=== PATIENT | female | born 1995 | race American Indian/Alaskan Native ===

== ENCOUNTER 2020-08-14 09:54 | Emergency (ER) | payer MEDICAID ==
[2020-08-14 10:55] LABS: Basophils % (Auto) 0.5 % (0.0-1.8); Eosinophils # (Auto) 0.1 K/mm3 (0.0-0.4); Eosinophils % (Auto) 1.9 % (0.0-4.3); Hematocrit 40.8 % (30.3-42.9); Lymphocytes # (Auto) 2.2 K/mm3 (1.2-5.4); Lymphocytes % (Auto) 39.7 % (13.4-35.0); Mean Corpuscular HGB Conc 34 % (30-34); Mean Corpuscular Volume 87 fl (79-97); Monocytes # (Auto) 0.5 K/mm3 (0.0-0.8); Monocytes % (Auto) 8.2 % (0.0-7.3); Platelet Count 206 K/mm3 (140-440); Red Blood Count 4.71 M/mm3 (3.65-5.03); Red Cell Distribution Width 13.3 % (13.2-15.2)
[2020-08-14 11:12] LABS: Bacteria,Urine 1+ /HPF (Negative); Bilirubin,Urine NEG (Negative); Blood,Urine NEG (Negative); Color,Urine Yellow (Yellow); Mucus,Urine 1+ /HPF; Protein,Urine <15 mg/dL mg/dL (Negative); Urobilinogen,Urine < 2.0 mg/dL (<2.0)
[2020-08-14 11:18] LABS: Alanine Aminotransferase 37 units/L (7-56); Albumin 4.4 g/dL (3.9-5); BUN/Creatinine Ratio 14; Blood Urea Nitrogen 13 mg/dL (7-17); Calcium 9.6 mg/dL (8.4-10.2); Hemolysis Index 11
--- NOTE | 2020-08-14 12:01 | Emergency Department Report ---
ED Abdominal Pain HPI - General Chief Complaint: Abdominal Pain Stated Complaint: BACK PAIN/N/MIGRAINE/HBP/DEHYDRATION Time Seen by Provider: 08/14/20 11:42 Source: patient Mode of arrival: Ambulatory Limitations: No Limitations - History of Present Illness Initial Comments: The patient was evaluated in the emergency department for symptoms described in the history of present illness. He/she was evaluated in the context of the global COVID-19 pandemic, which necessitated consideration that the patient might be at risk for infection with the virus that causes COVID-19. Institutional protocols and algorithms that pertain to the evaluation of patie nts at risk for COVID-19 are in a state of rapid change based on information released by regulatory bodies including the CDC and federal and state organizations. These policies and algorithms were followed during the patient's care in the emergency department. Please note that these policies, procedures and recommendations changed on a rapid basis. 25-year-old -[place] female presents to the emergency room stating that she has abdominal pain back pain and weakness times a couple of weeks. Patient states that she had vomited twice yesterday and still have nausea. Patient has not vomited today. Patient denies any dysuria no vaginal discharge or bleeding. She reports her last menstrual period was June 24, 2020 and she just stopped getting her Depo injection back in April 2020. Patient reports that her back pain is intermittent sharp worse with nothing better with pain medication. Patient states that she last took Tylenol couple days ago. Patient reports that her abdominal pain is intermittent and is mostly at night sharp and stabbing. Better with nothing and does admit to constipation. She reports a surgical history of a . MD Complaint: abdominal pain Onset/Timin -: week(s) Location: suprapubic Radiation: none Migration to: no migration Severity scale (0 -10): 0 Quality: cramping Consistency: intermittent Improves With: nothing Worsens With: nothing Associated Symptoms: nausea, vomiting (Yesterday), constipation. denies: diarrhea, fever, dysuria, hematemesis, hematochezia, hematuria - Related Data LMP Date: 06/24/20 (Recently gotten off of Depo) Home Medications Medication Instructions Recorded Confirmed Last Taken NexIUM 1 tab PO HS 02/24/18 02/25/18 1 Day Ago ~02/23/18 1 tab Previous Rx's Medication Instructions Recorded Last Taken Type Ferrous Sulfate [Feosol 325 MG tab] 325 mg PO BID #60 tablet 02/26/18 Unknown Rx Ibuprofen [Motrin 800 MG tab] 800 mg PO Q6H PRN #30 tablet 02/26/18 Unknown Rx oxyCODONE /ACETAMINOPHEN [Percocet 1 - 2 tab PO Q4H PRN #30 tablet 02/26/18 Unknown Rx 5/325 mg] Lidocain2.5%/Prilocai2.5% [Emla] 5 gm TP PRN #1 tube 03/01/18 Unknown Rx Ondansetron [Zofran ODT TAB] 4 mg PO Q8HR PRN #12 tab.rapdis 08/14/20 Unknown Rx Allergies Allergy/AdvReac Type Severity Reaction Status Date / Time Latex, Natural Rubber AdvReac Swelling Verified 02/26/18 07:47 ED Review of Systems ROS: Stated complaint: BACK PAIN/N/MIGRAINE/HBP/DEHYDRATION Other details as noted in HPI Comment: All other systems reviewed and negative ED Past Medical Hx - Past Medical History Previous Medical History?: Yes Hx Hypertension: Yes (PIH) Hx Congestive Heart Failure: No Hx Diabetes: No Hx Deep Vein Thrombosis: No Hx Renal Disease: Yes (pre-ecclampsia) Hx Sickle Cell Disease: No Hx Seizures: No Hx Asthma: No Hx COPD: No Hx HIV: No - Surgical History Past Surgical History?: Yes Additional Surgical History: c section - Social History Smoking Status: Never Smoker Substance Use Type: None - Medications Home Medications: Home Medications Medication Instructions Recorded Confirmed Last Taken Type NexIUM 1 tab PO HS 02/24/18 02/25/18 1 Day Ago History ~02/23/18 1 tab Ferrous Sulfate [Feosol 325 MG tab] 325 mg PO BID #60 tablet 02/26/18 Unknown Rx Ibuprofen [Motrin 800 MG tab] 800 mg PO Q6H PRN #30 tablet 02/26/18 Unknown Rx oxyCODONE /ACETAMINOPHEN [Percocet 1 - 2 tab PO Q4H PRN #30 tablet 02/26/18 Unknown Rx 5/325 mg] Lidocain2.5%/Prilocai2.5% [Emla] 5 gm TP PRN #1 tube 03/01/18 Unknown Rx Ondansetron [Zofran ODT TAB] 4 mg PO Q8HR PRN #12 tab.rapdis 08/14/20 Unknown Rx ED Physical Exam - General Limitations: No Limitations General appearance: alert, in no apparent distress - Head Head exam: Present: atraumatic, normocephalic - Eye Eye exam: Present: normal appearance - ENT ENT exam: Present: mucous membranes moist - Neck Neck exam: Present: normal inspection - Respiratory Respiratory exam: Present: normal lung sounds bilaterally. Absent: respiratory distress - Cardiovascular Cardiovascular Exam: Present: regular rate, normal rhythm. Absent: systolic murmur, diastolic murmur, rubs, gallop - GI/Abdominal GI/Abdominal exam: Present: soft, tenderness (Suprapubic), normal bowel sounds - Extremities Exam Extremities exam: Present: normal inspection - Back Exam Back exam: Present: normal inspection - Neurological Exam Neurological exam: Present: alert, oriented X3, normal gait - Psychiatric Psychiatric exam: Present: normal affect, normal mood - Skin Skin exam: Present: warm, dry, intact, normal color. Absent: rash ED Course Vital Signs 08/14/20 10:14 Temperature 98.5 F Pulse Rate 20 L Respiratory 17 Rate Blood Pressure 127/74 [Left] O2 Sat by Pulse 98 Oximetry ED Medical Decision Making - Lab Data Result diagrams: 08/14/20 10:29 08/14/20 10:29 - Medical Decision Making 25-year-old -[place] female presents to the emergency room stating that she has abdominal pain back pain and weakness times a couple of weeks. Patient states that she had vomited twice yesterday and still have nausea. Patient has not vomited today. Patient denies any dysuria no vaginal discharge or bleeding. She reports her last menstrual period was June 24, 2020 and she just stopped getting her Depo injection back in April 2020. Patient reports that her back pain is intermittent sharp worse with nothing better with pain medication. Patient states that she last took Tylenol couple days ago. Patient reports that her abdominal pain is intermittent and is mostly at night sharp and stabbing. Better with nothing and does admit to constipation. She reports a surgical history of a . Patient is given a Toradol injection and Zofran ODT. All labs unremarkable and nonactionable. Patient has no obvious distress mild suprapubic tenderness do not feel imaging is needed at this time. Critical care attestation.: If time is entered above; I have spent that time in minutes in the direct care of this critically ill patient, excluding procedure time. ED Disposition Clinical Impression: Acute abdominal pain, Acute back pain Disposition: TO HOME OR SELFCARE Is pt being admited?: No Does the pt Need Aspirin: No Condition: Stable Instructions: Abdominal Pain (ED) Additional Instructions: Labs are within normal limits. I recommend taking the Zofran as needed for the nausea Tylenol ibuprofen for pain of your back and to follow-up with your primary care provider. Prescriptions: Ondansetron [Zofran ODT TAB] 4 mg PO Q8HR PRN #12 tab.rapdis PRN Reason: Nausea And Vomiting Referrals: PRIMARY CARE, [Primary Care Provider] - 3-5 Days [facility] [Outside] - 3-5 Days
[2020-08-14] MEDS ORDERED: ONDANSETRON 4 MG ODT TAB PO ONE (12:54)
[2020-08-14] MEDS ORDERED: KETOROLAC 30 MG/1 ML INJ IM ONE (12:54)
--- NOTE | 2020-08-14 16:17 | Ultrasound Report ---
ULTRASOUND PELVIS INDICATION: pelvic pain. TECHNIQUE: Transabdominal and Transvaginal. Duplex Color Doppler used: Yes. COMPARISON: None available FINDINGS: Uterus: Present. Size: 8.3 x 3.9 x 3.3 cm. Endometrial complex: Normal measuring 0.6 cm. Mass lesions: There is an indeterminate hypoechoic solid lesion along the lower uterine segment measu ring 8 x 4 mm. Additional findings: None. Right Ovary: Size: 4.4 x 3.9 x 4.5 cm Blood flow: Normal. Cyst or mass: A simple right ovarian cyst measures 3.8 x 2.9 x 3.6 cm. No solid lesions. Left Ovary: Size: 1.6 x 1.4 x 0.9 cm Blood flow: Normal. Cyst or mass: None. Urinary Bladder: Normal. Free Fluid: None. Additional Findings: None. IMPRESSION: 1. Simple right ovarian cyst as above. No follow-up imaging is indicated at this time. 2. Indeterminate subcentimeter solid lower uterine segment lesion could represent a fibroid. Signer Name: Reymundo Patrick MD Signed: 08/14/2020 4:13 PM Workstation Name: [id number]
[2020-08-14 16:34] VITALS: BP 111/67
--- NOTE | 2020-08-17 07:04 | Ultrasound Report ---
Please see combined report under accession number: [id number] Signer Name: Ad Saldaña MD Signed: 08/17/2020 7:00 AM Workstation Name: [email or web address]
== END 2020-08-14 16:33 | disposition home or self-care (01) ==
LOC: ED 09:54
DX: R10.2 Pelvic and perineal pain (principal); R53.1 Weakness; R11.2 Nausea with vomiting, unspecified; M54.6 Pain in thoracic spine; I10 Essential (primary) hypertension; Z98.890 Other specified postprocedural states; Z79.1 Long term (current) use of non-steroidal anti-inflammatories (NSAID); Z79.899 Other long term (current) drug therapy; Z91.040 Latex allergy status; Z88.8 Allergy status to other drugs, medicaments and biological substances
CPT/HCPCS: 36415; 76830; 76856; 80053; 81001; 84703; 85025; 96372; 99284; J1885; Q0162

== ENCOUNTER 2021-06-26 22:30 | Emergency (ER) | payer MEDICAID ==
[2021-06-26 23:19] VITALS: BP 136/81
[2021-06-26] MEDS ORDERED: ACETAMINOPHEN 500 MG TAB PO ONE (23:21)
[2021-06-26] MEDS ORDERED: SODIUM CHLORIDE 0.9% 1000 ML 1,000 ML IV ONE (23:58)
--- NOTE | 2021-06-27 00:01 | Event Note ---
ED Screening Note Date of service: 06/26/21 Time: 23:58 ED Screening Note: 26-year-old A3 female patient, 13 weeks gestation, with history of preeclampsia, presents to the emergency department with complaints of painful vaginal bleeding starting tonight. Patient called her OB, who sent her to the emergency department for further evaluation. Patient has experienced multiple spontaneous abortions for reasons unknown. Patient's one successful was a delivery due to pre-eclampsia. Patient has noticed recurrent headaches and swelling in her lower extremities. Patient's OB has instructed patient to monitor the symptoms closely. Additionally, patient has been wearing a heart monitor on her watch, which has reportedly shown increased heart rate recently. Patient has had no known complications during this . Tachycardic in triage. General: Awake, appropriately interactive, no acute distress. Neck: Supple. Full range of motion intact. Cardiovascular: Normal peripheral perfusion. Pulmonary: No respiratory distress. Patient is speaking normally without use of accessory muscles. Skin: No apparent rashes or lesions. Neurological: No facial asymmetry. Speech is clear. Follows commands. Patient is alert and oriented. Musculoskeletal: Moves all four extremities spontaneously with normal range of motion. Psych: Cooperative. Appropriate mood and affect. Ordered labs, urinalysis, ultrasound. Requested telemetry monitor, peripheral IV access, and IV fluids. I have greeted and performed a focused rapid initial assessment of this patient. A comprehensive ED assessment and evaluation of the patient, analysis of all test results, and completion of the medical decision-making process will be conducted by additional ED providers. This initial assessment/diagnostic orders/clinical plan/treatment(s) is/are subject to change based on patients health status, clinical progression and re-assessment. Further treatment and workup at subsequent clinical provider's discretion. Patient/guardian urged not to elope from the ED as their condition may be serious if not clinically assessed and managed.
[2021-06-27 00:27] LABS: Basophils % (Auto) 0.4 % (0.0-1.8); Eosinophils # (Auto) 0.1 K/mm3 (0.0-0.4); Eosinophils % (Auto) 1.8 % (0.0-4.3); Hematocrit 37.8 % (30.3-42.9); Hemoglobin 13.1 gm/dl (10.1-14.3); Lymphocytes % (Auto) 31.2 % (13.4-35.0); Mean Corpuscular HGB Conc 35 % (30-34); Mean Corpuscular Volume 86 fl (79-97); Monocytes # (Auto) 0.4 K/mm3 (0.0-0.8); Monocytes % (Auto) 6.5 % (0.0-7.3); Platelet Count 212 K/mm3 (140-440); Red Blood Count 4.38 M/mm3 (3.65-5.03); Red Cell Distribution Width 12.8 % (13.2-15.2)
[2021-06-27 00:35] LABS: Alanine Aminotransferase 14 units/L (7-56); Albumin 4.4 g/dL (3.9-5); Blood Urea Nitrogen 7 mg/dL (7-17); Hemolysis Index 3
[2021-06-27 00:39] LABS: BUN/Creatinine Ratio 12
--- NOTE | 2021-06-27 00:51 | Emergency Department Report ---
ED HPI - General Chief complaint: Vaginal Bleeding Stated complaint: PREG BLEEDING CRAMPING Time Seen by Provider: 06/27/21 00:47 Source: patient Mode of arrival: Ambulatory Limitations: No Limitations - History of Present Illness Initial comments: Patient is a 26-year-old female who presents emergency room with complaints of lower abdominal pain and vaginal bleeding. Patient states she is 13 weeks . Patient states that she spoke with her ELECTRICAL EQUIPMENT TECHNICIAN and they sent her here to be evaluated. Patient states that she had abdominal cramping and pain that has since resolved. Patient states any discomfort now. Patient states she is going to the bathroom and one large clot, and little bit of spotting after that. Patient states that she does not have any active bleeding at this time. Patient denies recent travel. Patient denies recent international travel. Patient denies exposure to the novel coronavirus. Patient denies sick contacts. Patient denies fever and chills. Patient denies cough. Patient denies diarrhea. Patient denies coming in contact with anybody with symptoms of the novel coronavirus. MD Complaint: vaginal bleeding, "contractions" -: Sudden Severity scale (0 -10): 0 Quality: cramping Consistency: now resolved Improves with: none Worsens with: none Associated symptoms: vaginal bleeding, abdominal pain Vaginal bleeding: clots :: Yes Number of weeks : 13 OB History - Current : no complications OB History - Previous Pregnancies: preeclampsia Pre- care: followed by OB, previous ultrasound confi - Related Data : 2 Para: 1 Ab: 0 Home Medications Medication Instructions Recorded Confirmed Last Taken NexIUM 1 tab PO HS 02/24/18 02/25/18 1 Day Ago ~02/23/18 1 tab Previous Rx's Medication Instructions Recorded Last Taken Type Ferrous Sulfate [Feosol 325 MG tab] 325 mg PO BID #60 tablet 02/26/18 Unknown Rx Ibuprofen [Motrin 800 MG tab] 800 mg PO Q6H PRN #30 tablet 02/26/18 Unknown Rx oxyCODONE /ACETAMINOPHEN [Percocet 1 - 2 tab PO Q4H PRN #30 tablet 02/26/18 Unknown Rx 5/325 mg] Lidocain2.5%/Prilocai2.5% [Emla] 5 gm TP PRN #1 tube 03/01/18 Unknown Rx Ondansetron [Zofran ODT TAB] 4 mg PO Q8HR PRN #12 tab.rapdis 08/14/20 Unknown Rx Allergies Allergy/AdvReac Type Severity Reaction Status Date / Time Latex, Natural Rubber AdvReac Swelling Verified 02/26/18 07:47 ED Review of Systems ROS: Stated complaint: PREG BLEEDING CRAMPING Other details as noted in HPI Constitutional: denies: chills, fever Eyes: denies: eye pain, eye discharge, vision change ENT: denies: ear pain, throat pain Respiratory: denies: cough, shortness of breath, wheezing Cardiovascular: denies: chest pain, palpitations Endocrine: no symptoms reported Gastrointestinal: as per HPI, abdominal pain. denies: nausea, diarrhea Genitourinary: as per HPI. denies: urgency, dysuria, discharge Musculoskeletal: denies: back pain, joint swelling, arthralgia Skin: denies: rash, lesions Neurological: denies: headache, weakness, paresthesias Psychiatric: denies: anxiety, depression Hematological/Lymphatic: denies: easy bleeding, easy bruising ED Past Medical Hx - Past Medical History Previous Medical History?: Yes Hx Hypertension: Yes (PIH) Hx Congestive Heart Failure: No Hx Diabetes: No Hx Deep Vein Thrombosis: No Hx Renal Disease: Yes (pre-ecclampsia) Hx Sickle Cell Disease: No Hx Seizures: No Hx Asthma: No Hx COPD: No Hx HIV: No - Surgical History Past Surgical History?: Yes Additional Surgical History: c section - Family History Family history: no significant - Social History Smoking Status: Never Smoker Substance Use Type: None - Medications Home Medications: Home Medications Medication Instructions Recorded Confirmed Last Taken Type NexIUM 1 tab PO HS 02/24/18 02/25/18 1 Day Ago History ~02/23/18 1 tab Ferrous Sulfate [Feosol 325 MG tab] 325 mg PO BID #60 tablet 02/26/18 Unknown Rx Ibuprofen [Motrin 800 MG tab] 800 mg PO Q6H PRN #30 tablet 02/26/18 Unknown Rx oxyCODONE /ACETAMINOPHEN [Percocet 1 - 2 tab PO Q4H PRN #30 tablet 02/26/18 Unknown Rx 5/325 mg] Lidocain2.5%/Prilocai2.5% [Emla] 5 gm TP PRN #1 tube 03/01/18 Unknown Rx Ondansetron [Zofran ODT TAB] 4 mg PO Q8HR PRN #12 tab.rapdis 08/14/20 Unknown Rx ED Physical Exam - General Limitations: No Limitations General appearance: alert, in no apparent distress - Head Head exam: Present: atraumatic, normocephalic - Eye Eye exam: Present: normal appearance - ENT ENT exam: Present: mucous membranes moist - Neck Neck exam: Present: normal inspection - Respiratory Respiratory exam: Present: normal lung sounds bilaterally. Absent: respiratory distress - Cardiovascular Cardiovascular Exam: Present: regular rate, normal rhythm. Absent: systolic murmur, diastolic murmur, rubs, gallop - GI/Abdominal GI/Abdominal exam: Present: soft, normal bowel sounds - Extremities Exam Extremities exam: Present: normal inspection - Back Exam Back exam: Present: normal inspection - Neurological Exam Neurological exam: Present: alert, oriented X3 - Psychiatric Psychiatric exam: Present: normal affect, normal mood - Skin Skin exam: Present: warm, dry, intact, normal color. Absent: rash ED Course Vital Signs 06/26/21 23:08 Temperature 98.4 F Pulse Rate 110 H Respiratory 18 Rate Blood Pressure 136/81 O2 Sat by Pulse 98 Oximetry - Reevaluation(s) Reevaluation #1: I discussed all results and clinical findings with patient. I discussed plan of care with patient. Patient agrees with plan of care. Patient is stable for discharge. Patient will be discharged home. Patient given discharge instructions. Patient voiced understanding of discharge instructions. 06/27/21 03:12 ED Medical Decision Making - Lab Data Result diagrams: 06/27/21 00:14 06/27/21 00:14 - Radiology Data Radiology results: report reviewed US OB TRANSVAGINAL US OB <= 14 WK FETUS ADD GEST INDICATION / CLINICAL INFORMATION: pain + bleeding. COMPARISON: None available. FINDINGS: Intrauterine is seen. Watkins-rump length is 7.2 cm, 13 weeks 2 days. Heart rate is 155. Right ovary is not seen. There is a 2.7 cm left ovarian cyst. No free fluid. IMPRESSION: 1. Single viable intrauterine with sonographic gestational age of 13 weeks, 2 days. No acute findings. - Medical Decision Making Patient is a 26-year-old female that presents emergency room with complaints of abdominal cramping and vaginal bleeding. Patient states she passed a large clot while using the restroom. Patient states she had cramping and cramping lasted for few minutes and resolved. Patient on reevaluation was pain-free. Patient also stated he was only spotting at this time. Patient states she called her ELECTRICAL EQUIPMENT TECHNICIAN and they recommended the patient come to the emergency room. Patient had labs done which were essentially unremarkable. Patient's beta hCG was elevated. Patient had an ultrasound which shows a viable IUP. Patient is stable for discharge. Patient is now requiring further emergency medical service. Patient not require inpatient services. - Differential Diagnosis Vaginal bleeding, miscarriage, threatened miscarriage, Critical care attestation.: If time is entered above; I have spent that time in minutes in the direct care of this critically ill patient, excluding procedure time. ED Disposition Clinical Impression: Abdominal cramping affecting , Vagina bleeding, Vaginal bleeding affecting early Qualifiers: Weeks of gestation: 13 weeks Qualified Code(s): Z3A.13 - 13 weeks gestation of Disposition: 01 HOME / SELF CARE / HOMELESS Is pt being admited?: No Does the pt Need Aspirin: No Condition: Stable Instructions: Labor and Information, [id number], Vaginal Bleeding During , First Trimester Additional Instructions: Patient to follow-up with primary care in 2 to 3 days. Patient to follow-up with ELECTRICAL EQUIPMENT TECHNICIAN in 2 to 3 days. Patient to rest. Patient to increase water. Patient to avoid strenuous exercise or heavy lifting until cleared by ELECTRICAL EQUIPMENT TECHNICIAN. Nothing per vagina until cleared by ELECTRICAL EQUIPMENT TECHNICIAN. Patient to take Tylenol as needed for pain. Patient to take meds as directed. Patient to return to the ER if condition worsens, changes or new symptoms arise. Referrals: PRIMARY CARE, [Primary Care Provider] - 2-3 Days Time of Disposition: 02:57
[2021-06-27 00:59] LABS: Bilirubin,Urine NEG (Negative); Blood,Urine LG (Negative); Color,Urine Yellow (Yellow); Mucus,Urine 1+ /HPF; Protein,Urine <15 mg/dL mg/dL (Negative)
--- NOTE | 2021-06-27 02:33 | Ultrasound Report ---
US OB TRANSVAGINAL US OB <= 14 WK FETUS ADD GEST INDICATION / CLINICAL INFORMATION: pain + bleeding. COMPARISON: None available. FINDINGS: Intrauterine is seen. Benson-rump length is 7.2 cm, 13 weeks 2 days. Heart rate is 155. Right ovary is not seen. There is a 2.7 cm left ovarian cyst. No free fluid. IMPRESSION: 1. Single viable intrauterine with sonographic gestational age of 13 weeks, 2 days. No acut e findings. Signer Name: Jay Monique MD Signed: 06/27/2021 2:29 AM Workstation Name: [id number]
== END 2021-06-27 06:50 | disposition home or self-care (01) ==
LOC: ED 22:30
DX: O20.9 Hemorrhage in early pregnancy, unspecified (principal); O26.891 Other specified pregnancy related conditions, first trimester; Z3A.13 13 weeks gestation of pregnancy; R10.9 Unspecified abdominal pain; I12.9 Hypertensive chronic kidney disease with stage 1 through stage 4 chronic kidney disease, or unspecified chronic kidney disease; N18.9 Chronic kidney disease, unspecified; Z98.890 Other specified postprocedural states; Z91.040 Latex allergy status
CPT/HCPCS: 36415; 76801; 76802; 76817; 80053; 81001; 84702; 85025; 86900; 86901; 99283

== ENCOUNTER 2021-09-02 20:53 | Inpatient (IN) | payer MEDICAID ==
[2021-09-02] MEDS ORDERED: CARBOPROST TROMETHAMINE 250 MCG/1 ML INJ IM PRN (20:58)
[2021-09-02] MEDS ORDERED: fentaNYL 100 MCG/2 ML INJ IV PRN (20:58)
[2021-09-02] MEDS ORDERED: LOPERAMIDE 2 MG CAP PO PRN (20:58)
[2021-09-02] MEDS ORDERED: MINERAL OIL 30 ML ORAL LIQD PO PRN (20:58)
[2021-09-02] MEDS ORDERED: NALOXONE 0.4 MG/1 ML INJ IV PRN (20:58)
[2021-09-02] MEDS ORDERED: miSOPROStol 200 MCG TAB PR PRN (20:58)
[2021-09-02] MEDS ORDERED: PROMETHAZINE 25 MG TAB PO PRN (20:58)
[2021-09-02] MEDS ORDERED: TERBUTALINE 1 MG/1 ML INJ SUB-Q PRN (20:58)
[2021-09-02] MEDS ORDERED: OXYTOCIN 10 UNIT/1 ML INJ IM PRN (20:58)
[2021-09-02] MEDS ORDERED: ONDANSETRON 4 MG/2 ML INJ IV PRN (20:58)
[2021-09-02] MEDS ORDERED: METHYLERGONOVINE MALEATE 0.2 MG/ML VIAL IM PRN (20:58)
[2021-09-02] MEDS ORDERED: BUTORPHANOL 2 MG/1 ML INJ IV PRN (20:58)
[2021-09-02] MEDS ORDERED: ACETAMINOPHEN 325 MG TAB PO PRN (20:58)
[2021-09-02] MEDS ORDERED: OXYTOCIN DRIP 30 UNITS/500 ML BAG IV SCH (21:00)
[2021-09-02] MEDS ORDERED: LACTATED RINGERS 1,000 ML IV SCH (21:00)
--- NOTE | 2021-09-02 21:11 | History and Physical Report ---
History of Present Illness Date of examination: 09/02/21 Date of admission: 09/02/21 Chief complaint: They told me to come to the hospital because my baby did not have a heart rate. History of present illness: Patient with anhydramnios since 07/21/21 @ 16+ wks. She had a echo and MRI for evaluation of lungs today at [facility], which revealed no heart rate. Also of note, there appears to body swelling, and abnormalities in the brain. Dr. Soler received a call from Dr. Mares ([facility]) with this new diagnosis tonight. It was recommended that the patient come to the hospital for IOL d/t IUFD. Patient also had a positive AFP for OSB but the [id number] was negative. EDC Confirmation: 01/02/2022 Gestational Age: 22.4 weeks on admission Past History : 5 Term Births: 1 Premature Births: 0 Living Children: 1 Para: 1 Mult. Births: 0 Prev : 1 Prev. attempt? none Aborta: 3 Elect. Ab: 1 Spont. Ab: 2 Ectopics: 0 # 1 Delivery date: 2012 Delivery type: EAB # 2 Delivery date: 2014 Weeks Gestation: ? Delivery type: SAB Comments: No D&C # 3 Delivery date: 02/26/2018 Weeks Gestation: 36 Delivery type: Hours of labor: 24 Anesthesia type: Spinal Delivery location: [facility] Sex: male weight: 6.25 Comments: pre-eclampsia/eclampsia severe failed induction # 4 Delivery date: 01/2021 Weeks Gestation: 4 Delivery type: SAB Comments: denies complications,medications, and procedures Past Medical History: Reviewed history from 09/25/2017 and no changes required: Eczema Past Surgical History: Reviewed history from 02/26/2018 and no changes required: D&C: (2012) EAB (02/26/2018) Family History Summary: Reviewed history and no changes required: 06/14/2021 Other Family Member - Has No Family History of Ovarvian Cancer - Entered On: 09/25/2017 Other Family Member - Has No Family History of Colon Cancer - Entered On: 09/25/2017 Other Family Member - Has No Family History of Breast Cancer - Entered On: 09/25/2017 Other Family Member - Has Family History of Hypertension - Entered On: 09/25/2017 Other Family Member - Has Family History of Diabetes - Entered On: 09/25/2017 Other Family Member - Has Family History of Coronary Heart Disease - Entered On: 09/25/2017 Social History: Reviewed history from 09/25/2017 and no changes required: Unemployed Patient is single Risk Factors: Smoked Tobacco Use: Never smoker Smokeless Tobacco Use: Never Passive Smoke Exposure: no HIV High Risk Behavior: no Caffeine Use: 0 drinks per day Exercise: yes Exercise Counseling: yes Seatbelt Use: preg-group therapy counselor % Family History Risk Factors: Family History of OR in 1 Female Relative Age < 65: no Family History of OR in 1 Male Relative Age < 55: no Dietary Counseling: yes Alcohol Use: no Drug Use: no Past Medical History Anesthesia Complications: negative Anemia: negative Autoimmune Disorder: negative Bleeding Disorder: negative Blood Transfusions: negative Breast Disease: negative Diabetes: negative Heart Disease: negative Hypertension: positive Hepatitis/Liver Disease: negative Kidney Disease/UTI: negative Neurologic/Epilepsy/Migraines: negative Phlebitis/Varicosities: negative Psychiatric: negative Pulmonary Disease/Asthma: negative Thyroid Disease: negative Hospitalizations: negative 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 of genital herpes: no Partner hx. of genital herpes: no Rash, Viral, or Febrile illness since last LMP? no Varicella/Chicken Pox Status: Unknown TB Risk: no Genetic History Congenital Heart Defect: Mom: no Dad: no Nguyen Disease: Mom: no Dad: no Thalassemia Mom: no Dad: no Neural Tube Defect Mom: no Dad: no Down's Syndrome Mom: no Dad: no Yg-Sachs Mom: no Dad: no Sickle Cell Disease/Trait Mom: no Dad: no Hemophilia Mom: no Dad: no Muscular Dystrophy Mom: no Dad: no Cystic Fibrosis Mom: no Dad: no Liss Chorea Mom: no Dad: no Mental Retardation Mom: no Dad: no Fragile X Mom: no Dad: no Other Genetic/Chromosomal Disorder Mom: no Dad: no Child w/other defect Mom: no Dad: no Enviromental Exposures Enviromental Exposures Reviewed Xray Exposure: no Medication, drug, or alcohol use since LMP: no Chemical/Other Exposure: no Exposure to Cat Liter: no Hx of Parvovirus (Fifth Disease): no Occupational Exposure to Children: none Current Allergies (reviewed today): * LATEX (Critical) Past History Past Medical History: other (eczema) Past Surgical History: section (2017), D&C (2012) Family/Genetic History: none Social history: no significant social history - Obstetrical History Expected Date of Delivery: 01/02/22 Actual Gestation: 22 Week(s) 5 Day(s) : 5 Para: 1 Hx # Term Pregnancies: 0 Number of Pregnancies: 1 Spontaneous Abortions: 2 Induced : 1 Number of Living Children: 1 Medications and Allergies Allergies Allergy/AdvReac Type Severity Reaction Status Date / Time Latex, Natural Rubber AdvReac Swelling Verified 02/26/18 07:47 Home Medications Medication Instructions Recorded Confirmed Last Taken Type NexIUM 1 tab PO HS 02/24/18 02/25/18 1 Day Ago History ~02/23/18 1 tab Ferrous Sulfate [Feosol 325 MG tab] 325 mg PO BID #60 tablet 02/26/18 Unknown Rx Ibuprofen [Motrin 800 MG tab] 800 mg PO Q6H PRN #30 tablet 02/26/18 Unknown Rx oxyCODONE /ACETAMINOPHEN [Percocet 1 - 2 tab PO Q4H PRN #30 tablet 02/26/18 Unknown Rx 5/325 mg] Lidocain2.5%/Prilocai2.5% [Emla] 5 gm TP PRN #1 tube 03/01/18 Unknown Rx Ondansetron [Zofran ODT TAB] 4 mg PO Q8HR PRN #12 tab.rapdis 08/14/20 Unknown Rx Active Meds: Active Medications Acetaminophen (Acetaminophen 325 Mg Tab) 650 mg PO Q4H PRN PRN Reason: Pain, Mild (1-3) Butorphanol Tartrate (Butorphanol 2 Mg/1 Ml Inj) 1 mg IV Q2H PRN PRN Reason: Pain, Moderate(4-6) LABOR PAIN Carboprost Tromethamine (Carboprost Tromethamine 250 Mcg/1 Ml Inj) 250 mcg IM ONCE PRN PRN Reason: Uterine Bleeding Fentanyl (Fentanyl 100 Mcg/2 Ml Inj) 100 mcg IV Q2H PRN PRN Reason: Pain,Severe (7-10) LABOR PAIN Lactated Ringer's (Lactated Ringers) 1,000 mls @ 125 mls/hr IV DIRECT AYUSH Oxytocin/Sodium Chloride (Pitocin/Ns 30 Unit/500ml) 30 units in 500 mls @ 40 mls/hr IV TITR AYUSH; Protocol Loperamide HCl (Loperamide 2 Mg Cap) 2 mg PO ONCE PRN PRN Reason: give with Hemabate Methylergonovine Maleate (Methylergonovine Maleate 0.2 Mg/Ml Vial) 0.2 mg IM O NCE PRN PRN Reason: Uterine Bleeding Misoprostol (Misoprostol 200 Mcg Tab) 800 mcg MO ONCE PRN PRN Reason: Uterine Bleeding Naloxone HCl (Naloxone 0.4 Mg/1 Ml Inj) 0.1 mg IV Q2MIN PRN PRN Reason: Res Rate </= 8 or 02 SAT < 92% Ondansetron HCl (Ondansetron 4 Mg/2 Ml Inj) 4 mg IV Q8H PRN PRN Reason: Nausea And Vomiting Oxytocin (Oxytocin 10 Unit/1 Ml Inj) 10 unit IM ONCE PRN PRN Reason: Uterine Bleeding Promethazine HCl (Promethazine 25 Mg Tab) 25 mg PO Q6H PRN PRN Reason: Nausea And Vomiting Terbutaline Sulfate (Terbutaline 1 Mg/1 Ml Inj) 0.25 mg SUB-Q ONCE PRN PRN Reason: Hyperstimulation/Hypertonicity Review of Systems All systems: negative - Vital Signs Vital signs: Confirmatory u/s completed upon admission confirmed fetus with no FHR. Discussed this finding with the patient. Pt states that she will be ready to deliver this baby. We discussed options for IOL, IOL may take up to 3 days, and pain management during IOL. Pt verbalized understanding and wishes to proceed with IOL. - Physical Exam Breasts: Positive: deferred Cardiovascular: Regular rate Lungs: Positive: Normal air movement Abdomen: Positive: normal appearance, soft Genitourinary (Female): Positive: normal external genitalia, normal perenium Vulva: both: normal Vagina: Positive: normal moisture Extremities: Positive: normal - Obstetrical Uterine Contraction Monitor Mode: External (TOCO monitoring only) Cervical Dilatation: 0 Cervical Effacement Percentage: 0 station: -3 Results Result Diagrams: 09/02/21 22:00 All other labs normal. GBS UNKNOWN D/T EARLY GESTATION HBsAg Screen Negative Negative *1 RPR Non Reactive Non Reactive *2 Rubella Antibodies, IgG 1.26 index Immune >0.99 *3 Non-immune <0.90 Equivocal 0.90 - 0.99 Immune >0.99 ABO Grouping B *4 Rh Factor Positive *5 Please note: Prior records for this patient's ABO / Rh type are not available for additional verification. Antibody Screen Negative Negative *6 Tests: (2) HB Solu + Rflx Fra (460060) Hemoglobin (Hgb) Solubility Negative Negative *31 Tests: (3) HIV Ag/Ab with Reflex (428752) HIV Screen 4th Generation wRfx Non Reactive Non Reactive *32 Tests: (4) HCV Antibody reflex to SOY (813176) HCV Ab <0.1 s/co ratio 0.0-0.9 *33 Tests: (5) Interpretation: (411603) ! Interpretation: SPRCS *34 Negative Not infected with HCV, unless recent infection is suspected or other evidence exists to indicate HCV infection. Assessment and Plan A: 26 y.o. @ 22.4 wks, IOL d/t IUFD. - Patient Problems (1) IUFD at 20 weeks or more of gestation Onset Date: ~09/02/21 Current Visit: Yes Status: Acute Plan to address problem: Admit to labor and delivery. Initiate IV. Draw admission labs. Initiate IOL with Cytotec 400mcg q 6 hrs vaginally. (2) Previous section Current Visit: Yes Status: Acute
[2021-09-02 22:46] LABS: Hematocrit 35.4 % (30.3-42.9); Hemoglobin 11.9 gm/dl (10.1-14.3); Mean Corpuscular HGB Conc 34 % (30-34); Mean Corpuscular Volume 85 fl (79-97); Platelet Count 201 K/mm3 (140-440); Red Blood Count 4.18 M/mm3 (3.65-5.03); Red Cell Distribution Width 12.9 % (13.2-15.2)
--- NOTE | 2021-09-02 22:48 | Ultrasound Report ---
ULTRASOUND OBSTETRIC LIMITED INDICATION / CLINICAL INFORMATION: heart rate. Evaluate for demise. Clinical Gestational Age (GA) in weeks, days: 22, 3 TECHNIQUE: Transabdominal. COMPARISON: Ultrasound dated 06/27/21 FINDINGS: HEART RATE (beats per minute): No cardiac activity. AMNIOTIC FLUID INDEX (cm) = no amniotic fluid on provided images. (normal = 7-24 cm) PRESENTATION: Breech. ADDITIONAL FINDINGS: None. IMPRESSION: 1. No cardiac activity with no visualized amniotic fluid. Findings suggest intrauterine d emise. Signer Name: Ad Saldaña MD Signed: 09/02/2021 10:43 PM Workstation Name: [id number]
[2021-09-02] MEDS: miSOPROStol 200 MCG TAB VG SCH (23:18)
--- NOTE | 2021-09-02 23:27 | Event Note ---
Date: 09/02/21 Cervical exam cl/th/hi. 400mcg of Cytotec placed vaginally. Pt tolerated the procedure well.
[2021-09-03] MEDS ORDERED: miSOPROStol 200 MCG TAB ONE (05:13)
[2021-09-03] MEDS ORDERED: miSOPROStol 100 MCG TAB ONE (05:14)
[2021-09-03] MEDS: miSOPROStol 200 MCG TAB VG SCH (05:18)
[2021-09-03] MEDS ORDERED: BUTORPHANOL 2 MG/1 ML INJ IV PRN (05:22)
--- NOTE | 2021-09-03 05:22 | Event Note ---
Date: 09/03/21 (Cytotec 400mcg placed) Cervical exam unchanged. Cytotec 400mcg placed vaginally. Pt states that she is having some pain. Request an epidural. RN aware to start IV bolus for epidural placement.
[2021-09-03] MEDS ORDERED: ePHEDrine SULFATE 50 MG/1 ML INJ IV PRN (06:54)
[2021-09-03] MEDS ORDERED: NALOXONE 2 MG/2 ML INJ IV PRN (06:54)
--- NOTE | 2021-09-03 06:58 | Anesthesia Consultation ---
Anesthesia Consult and Med Hx Date of service: 09/03/21 - Airway Anesthetic Teeth Evaluation: Poor ROM Head & Neck: Adequate Mental/Hyoid Distance: Adequate Mallampati Class: Class II Intubation Access Assessment: Probably Good - Pulmonary Exam CTA: Yes - Cardiac Exam Cardiac Exam: RRR - Pre-Operative Health Status ASA Pre-Surgery Classification: ASA2 Proposed Anesthetic Plan: Epidural - Pulmonary Hx Smoking: Yes Hx Asthma: No Hx Respiratory Symptoms: No SOB: No COPD: No Home Oxygen Therapy: No Hx Pneumonia: No Hx Sleep Apnea: No - Cardiovascular System Hx Hypertension: No (with last ) Hx Coronary Artery Disease: No Hx Heart Attack/AMI: No Hx Angina: No Hx Percutaneous Transluminal Coronary Angioplasty (PTCA): No Hx Cardia Arrhythmia: No Hx Pacemaker: No Hx Internal Defibrillator: No Hx Valvular Heart Disease: No Hx Heart Murmur: No Hx Peripheral Vascular Disease: No - Central Nervous System Hx Neuromuscular Disorder: No Hx Seizures: No CVA: No Hx Back Pain: Yes Hx Psychiatric Problems: No - Gastrointestinal Hx Ulcer: No Hx Gastroesophageal Reflux Disease: Yes - Endocrine Hx Renal Disease: No Hx End Stage Renal Disease: No Hx Cirrhosis: No Hx Liver Disease: No Hx Insulin Dependent Diabetes: No Hx Non-Insulin Dependent Diabetes: No Hx Thyroid Disease: No Hx Hypothyroidism: No Hx Hyperthyroidism: No - Hematic Hx Anemia: Yes Hx Sickle Cell Disease: No - Other Systems Hx Alcohol Use: No Hx Substance Use: Yes (marijuana) Hx Cancer: No Hx Obesity: No
--- NOTE | 2021-09-03 06:59 | Progress Note ---
Labor Epidural - Labor Epidural Start Time: 06:27 Stop Time: 06:36 Performed by:: TAWNYA PETIT Procedure: Patient is requesting a laboring epidural for laboring pain. Patient IDed, H&P reviewed, all questions and concerns were answered, and consent was signed. Timeout was performed at bedside. Patient in sitting position. Sterile prep and drape was performed. [3] ml of 1% lidocaine skin wheal at L[3]- L [4]. 17- gauge Tuohy epidural needle was advanced to loss of resistance with saline technique 5cm. Negative CSF negative blood. Epidural catheter advanced to [9] centimeters. [NEGATIVE] Aspiration [NEGATIVE] test dose. Sterile dressing applied. Patient tolerated procedure.
[2021-09-03] MEDS ORDERED: fentaNYL-BUPIV 2 MCG/ML-0.125% 200 MCG/100 ML BAG EPIDURAL SCH (07:00)
--- NOTE | 2021-09-03 09:55 | Procedure Note ---
OB Delivery Note - Delivery Date of Delivery: 09/03/21 Medical Communication Specialist: RACIEL FLORES Estimated blood loss: <100cc - Vaginal Intrapartum events: labor-<37 weeks, PROM->1hr before delivery, foul smelling fluid Delivery induction: misoprostol Delivery monitor: external uterine Route of delivery: Delivery placenta: manual Episiotomy: none Delivery laceration: none Anesthesia: epidural Delivery comments: RN called CNM to bedside @0854 reporting pt just delivered. CNM immediately to bedside. Pt reports desires to hold . Umbilical cord clamped x2, and cut by FOB. Infant to mother's arms. Dr. Smith notified of delivery, awaiting placenta, and Pitocin bolus started IV. @0932 Dr. Smith to bedside and placenta removed manually. Orders placed for stat pelvic ultrasound. Pt remains LDR stable. EBL 75mL. No lacerations to repair. So supportive and present at bedside. @1115 still awaiting ultrasound, recycling technician reports machine en route to bedside. Pt remains LDR stable, no vaginal bleeding noted, fundus firm and 4 fingerbreaths below umbilicus, abdomen soft and nontender. Pt resting and denies complaints at this time. - A at 1 minute: 0 at 5 minutes: 0 Infant Gender: Female
--- NOTE | 2021-09-03 12:30 | Event Note ---
Date: 09/03/21 Prelim report shows hyperechoic area in lower uterine segment. Will await final report reading or call from radiologist regarding if this appears to be pocs/placentl tissue vs clots. Bleeding is minimal as per inpatient services director last exam. Pt is aware of the findings at this time and will proceed with exam under anesthesia if the findings are c/w placental tissue or pocs on final reading of report.
--- NOTE | 2021-09-03 12:31 | Ultrasound Report ---
ULTRASOUND PELVIC LIMITED HISTORY: Retained products of conception TECHNIQUE: Transabdominal ultrasound with color Doppler imaging FINDINGS: Targeted ultrasound was performed on the uterus and endometrial stripe. The endometrium makenna suring less than 5 mm. There is no evidence for retained products of conception. No fluid collection. The uterus is anteverted and otherwise unremarkable. The ovaries were not imaged. No pelvic fluid co llection. IMPRESSION: Unremarkable exam. No evidence for retained products of conception. Signer Name: Reymundo Koehler Jr, MD Signed: 09/03/2021 12:27 PM Workstation Name: [id number]
[2021-09-03] MEDS ORDERED: HYDROcodone/ACETAMINOPHEN 5-325 MG TAB PO PRN (15:42)
[2021-09-03] MEDS ORDERED: BENZOCAINE/MENTHOL 20/0.5% TOP SPRAY 56 GM TP PRN (15:42)
[2021-09-03] MEDS ORDERED: PROMETHAZINE 25 MG RECT SUPP PR PRN (15:42)
[2021-09-03] MEDS ORDERED: ACETAMINOPHEN 325 MG TAB PO PRN (15:42)
[2021-09-03] MEDS ORDERED: MAGNESIUM HYDROXIDE (MOM) ORAL LIQD UDC PO PRN (15:42)
[2021-09-03] MEDS ORDERED: PROMETHAZINE 25 MG TAB PO PRN (15:42)
[2021-09-03] MEDS ORDERED: WITCH HAZEL/ GLYCERIN PAD TP PRN (15:42)
[2021-09-03] MEDS ORDERED: HYDROCORTISONE 25 MG RECTAL SUPP PR PRN (15:42)
[2021-09-03] MEDS ORDERED: ONDANSETRON 4 MG/2 ML INJ IV PRN (15:42)
[2021-09-03] MEDS ORDERED: diphenhydrAMINE 25 MG CAP PO PRN (15:42)
[2021-09-03] MEDS: IBUPROFEN 600 MG TAB PO SCH (18:24)
--- NOTE | 2021-09-03 20:25 | Post Anesthesia Evaluation ---
- Post Anesthesia Evaluation Patient Participated: Yes Airway Patent: Yes Stable Respiratory Function: Yes Nausea/Vomiting: No Temp > 96.8F: Yes Pain Manageable: Yes Adequeate Hydration: Yes Anesthesia Complications: No Block Receding Appropriately: Yes Patient on Ventilator: No
[2021-09-03] MEDS: FERROUS SULFATE 325 MG TAB PO SCH (22:36)
[2021-09-03] MEDS: SENNOSIDES/DOCUSATE SODIUM 8.6/50 MG TAB PO SCH (22:36)
[2021-09-03] MEDS: DOCUSATE SODIUM 100 MG CAP PO SCH (22:36)
[2021-09-04 03:59] LABS: Hematocrit 32.8 % (30.3-42.9); Hemoglobin 11.1 gm/dl (10.1-14.3)
[2021-09-04] MEDS ORDERED: TETANUS,DIPH,PERTUSS(ACELL) VACCINE 0.5 ML SYRINGE IM ONE (06:00)
[2021-09-04] MEDS: IBUPROFEN 600 MG TAB PO SCH (08:28)
[2021-09-04] MEDS ORDERED: PRENATAL VIT27-FE FUMARATE-FOLIC ACID VIT TAB PO SCH (10:00)
[2021-09-04] MEDS: FERROUS SULFATE 325 MG TAB PO SCH (10:03)
[2021-09-04] MEDS: DOCUSATE SODIUM 100 MG CAP PO SCH (10:03)
--- NOTE | 2021-09-04 10:19 | Discharge Summary ---
Providers - Providers Date of Admission: 09/02/21 20:58 Date of discharge: 09/04/21 (Pt desires discharge home. ) Attending physician: EVELIN CORDON MD Primary care physician: [employer] Hospitalization Reason for admission: induction of labor Delivery: Episiotomy: none Laceration: none Other procedures: none complications: none Discharge diagnosis: intrapartum demise Pertinent studies: Ms. Smith denies s/sx of depression, wanting to harm herself or anyone else, and SI. 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 Hospital course: S: Pt doing well. Voiding, passing flatus, and ambulating without difficulty. BC: Undecided. O: VSS. Adequate I&O's. Minimal vaginal bleeding noted. H/H 11.1/32.8. A: 26 y.o. s/p @ , pre viable. In good condition . P: Discharge home with instructions. To schedule visit in the office in 4 weeks. Condition at discharge: Good Disposition: 01 HOME / SELF CARE / HOMELESS Plan - Provider Discharge Summary Activity: routine, no sex for 6 weeks, no heavy lifting 4 weeks, no strenuous exercise Diet: routine Instructions: routine Additional instructions: [] Smoking cessation referral if applicable(refer to patient education folder for contact #) [] Refer to [facility]'s [facility] Booklet Call your doctor immediately for: * Fever > 100.5 * Heavy vaginal bleeding ( >1 pad per hour) * Severe persistent headache * Shortness of breath * Reddened, hot, painful area to leg or breast * Drainage or odor from incision. * Keep incision clean and dry at all times and follow doctor's instructions regarding bathing/showering We are very sorry for the loss of your baby! Please call us after discharge to let us know if you need any additional emotional support or resources. If you have any questions or concerns after discharge, please do not hesitate to call the office at [phone]. A provider will call you in the week after you are discharged to check on you. - Follow up plan Follow up: PRIMARY CARE, [Primary Care Provider] - 7 Days
--- NOTE | 2021-09-04 10:33 | Event Note ---
Date: 09/04/21 (Depression Scale 16) Pt denied s/sx of depression, but when she spoke with the RN she admitted some feelings of "feeling down. I just lost my baby." Mental health assessment before discharge home.
[2021-09-04] MEDS: SENNOSIDES/DOCUSATE SODIUM 8.6/50 MG TAB PO SCH (11:42)
[2021-09-04 12:48] VITALS: BP 104/48
== END 2021-09-04 12:30 | disposition home or self-care (01) | DRG 775 ==
LOC: TRG 20:53 → LD 20:55 → TRG 20:58 → LD 20:58 → OB 09-03 15:38
PROVIDERS: ADMIT Student in an Organized Health Care Education/Training Program; ATTEND Student in an Organized Health Care Education/Training Program
PROC: 10E0XZZ Delivery of Products of Conception, External Approach (ICD-10-PCS; principal; 2021-09-03)
PROC: 3E0R3BZ Introduction of Anesthetic Agent into Spinal Canal, Percutaneous Approach (ICD-10-PCS; 2021-09-03)
PROC: 00HU33Z Insertion of Infusion Device into Spinal Canal, Percutaneous Approach (ICD-10-PCS; 2021-09-03)
PROC: 3E0P7VZ Introduction of Hormone into Female Reproductive, Via Natural or Artificial Opening (ICD-10-PCS; 2021-09-03)
PROC: 3E0234Z Introduction of Serum, Toxoid and Vaccine into Muscle, Percutaneous Approach (ICD-10-PCS; 2021-09-04)
DX: O36.4XX0 Maternal care for intrauterine death, not applicable or unspecified (principal); Z37.1 Single stillbirth; Z91.040 Latex allergy status; Z91.048 Other nonmedicinal substance allergy status; O60.14X0 Preterm labor third trimester with preterm delivery third trimester, not applicable or unspecified; Z3A.22 22 weeks gestation of pregnancy; Z23 Encounter for immunization; Z20.822 Contact with and (suspected) exposure to COVID-19
CPT/HCPCS: 36415; 76815; 76857; 85014; 85018; 85027; 86592; 86850; 86900; 86901; 88305; G0378; J3490; J0595; J2405; J2590; J3010; J7120; U0003